=== PATIENT | male | born 1975 | race Two or more races ===

== ENCOUNTER → 2016-04-06 | Outpatient (CLI) | payer OTHER ==
--- NOTE | 2016-04-06 15:19 | RAD ---
Indication left testicular pain. Grayscale color Doppler and spectral imaging was performed targeted to the testicles. The right testicle measures 5.2 x 3.2 x 2.5 cm and appears unremarkable. There is normal flow to the testicle. There is no significant hydrocele. The visualized epididymis appears normal. Left testicle measures 4.3 x 2.1 cm and appears normal. The epididymis appears normal. There is normal flow to the left testicle. Note was made during the examination of bilateral varicoceles. IMPRESSION: Normal testicles. Bilateral varicoceles
== END | disposition home or self-care (01) ==
LOC: US 14:27
PROVIDERS: ATTEND Family Medicine
DX: N50.812 Left testicular pain (principal); I86.1 Scrotal varices
CPT/HCPCS: 76870